=== PATIENT | male | born 1935 | race Caucasian/White ===

== ENCOUNTER 2017-07-02 09:10 | Emergency (ER) | payer MEDICARE, OTHER ==
[~2017-07-02] VITALS: Ht 165.1 cm; Wt 70.3 kg
--- NOTE | 2017-07-02 09:13 | NUR ---
PT BIBA BLS TO BED 11
[2017-07-02] MEDS ORDERED: PHENYLEPHRINE 0.5% 15 ML BTL NS ONE (09:15)
[2017-07-02 09:17] VITALS: BP 195/86
[2017-07-02] MEDS ORDERED: LANS15EC28 PO (09:24)
--- NOTE | 2017-07-02 09:25 | NUR ---
ASSUMED PATIENT CARE, CONCUR WITH TRIAGE.
[2017-07-02] MEDS ORDERED: METF500T PO (09:29)
[2017-07-02] MEDS ORDERED: TICA90TA PO (09:30)
[2017-07-02] MEDS ORDERED: TAMS0.4C97 PO (09:33)
[2017-07-02] MEDS ORDERED: ATOR20TA PO (09:35)
[2017-07-02] MEDS ORDERED: METO50TE2 PO (09:36)
[2017-07-02] MEDS ORDERED: QUIN5TAB PO (09:38)
[2017-07-02] MEDS ORDERED: FERR325E14 PO (09:39)
[2017-07-02] MEDS ORDERED: ASPI81CT89 PO (09:41)
--- NOTE | 2017-07-02 09:42 | NUR ---
GEGE RODRÍGUEZ DEPLOYED BY DR DINH TO JOE WU.
[2017-07-02 10:48] VITALS: BP 164/77
--- NOTE | 2017-07-02 10:50 | NUR ---
DISPO AND MEDICAL DECISION MAKING, DC HOME WITH INSTRUCTIONS, AND PRESCRIPTION, UNDERSTOOD BY PATIENT WELL. NO BLEEDING TO NARE NOTED. VSWNL, NO DISTRESS.
== END 2017-07-02 10:50 | disposition home or self-care (01) ==
LOC: MED 09:10
DX: R04.0 Epistaxis (principal)
CPT/HCPCS: 30901; 82948; 99284